=== PATIENT | female | born 1965 | race Caucasian/White ===

== ENCOUNTER 2023-06-08 12:31 | Emergency (ER) | payer BC, SELFPAY ==
--- NOTE | ~2023-06-08 | CT_ITS ---
EXAMINATION: CT cervical spine wo con DATE: 06/08/2023 13:56 INDICATION: Head injury. TECHNIQUE: Computed tomography (CT) of the cervical spine was performed without intravenous contrast. Automated exposure control and iterative reconstruction technique were employed. The dose-length pro duct was 553.21 mGy-cm. COMPARISON: None FINDINGS: There is an 8 degrees levocurvature of the cervicothoracic spine. Vertebral body heights ar e normal. There is mildly decreased disc height at C4-C5 and moderately decreased disc height at C5-C 6 and C6-C7. The following disc levels are specifically discussed: C2-C3: There is no uncovertebral joint osteoarthritis. There is severe right and mild left facet join t osteoarthritis. There is no neural foraminal stenosis. There is no central canal stenosis. C3-C4: There is mild bilateral uncovertebral joint osteoarthritis. There is mild bilateral facet join t osteoarthritis. There is no neural foraminal stenosis. There is no central canal stenosis. C4-C5: There is no uncovertebral joint osteoarthritis. There is no facet joint osteoarthritis. There is no neural foraminal stenosis. There is no central canal stenosis. C5-C6: There is severe right and moderate left uncovertebral joint osteoarthritis. There is mild bila teral facet joint osteoarthritis. There is mild bilateral neural foraminal stenosis. There is mild ce ntral canal stenosis. C6-C7: There is mild bilateral uncovertebral joint osteoarthritis. There is severe bilateral facet kelsy int osteoarthritis. There is mild bilateral neural foraminal stenosis. There is mild central canal st enosis. C7-T1: There is no uncovertebral joint osteoarthritis. There is severe right and mild left facet join t osteoarthritis. There is mild right neural foraminal stenosis. There is no central canal stenosis. IMPRESSION: 1. No fracture. 2. Moderate cervical spondylosis. Reviewed, dictated and finalized at location A.
--- NOTE | ~2023-06-08 | CT_ITS ---
EXAMINATION: CT brain wo con DATE: 06/08/2023 13:56 INDICATION: Head injury. TECHNIQUE: Computed tomography (CT) of the head was performed without intravenous contrast. The mA wa s adjusted according to patient size. Iterative reconstruction technique was employed. The dose-lengt h product was 681.00 mGy-cm. COMPARISON: None FINDINGS: There is no intracranial hemorrhage, acute infarction, or abnormal intracranial mass lesion . The ventricles are normal in size. The orbits are normal. There is mild mucosal thickening in the e thmoid sinuses. The mastoid air cells are normal. There is left posterior scalp soft tissue swelling. IMPRESSION: 1. Normal brain. Reviewed, dictated and finalized at location A. IMPRESSION: 1. Normal brain.
[2023-06-08 12:52] VITALS: BP 157/66; PULSE 85; RESP 18; TEMP 36.3; O2SAT 100
--- NOTE | 2023-06-08 13:34 | ED.HEATRA ---
HPI - Head Injury General Chief complaint: Head Injury <Val Tan PA-C - Last Filed: 06/08/23 13:44> Stated complaint: head injury <Val Tan PA-C - Last Filed: 06/08/23 13:44> Time Seen by Provider: 06/08/23 13:34 <Val Tan PA-C - Last Filed: 06/08/23 13:44> Focused HPI: Patient is a 57-year-old female who presents the ED with report of a fall/head injury. Patient reports she tripped and fell and the bathroom this morning and hit her head on the door frame. Sustained a contusion to her posterior scalp. No bleeding. Denied LOC. denied prodromal symptoms prior to the fall, however states over the last 1 hour, has become somewhat somnolent, states she feels very heavy, feels as though there are bugs in her head. Denies dizziness, lightheadedness, vision changes, nausea. Family member at bedside states patient is not acting herself. Patient is not on any blood thinners. Denies any other pain. Denies neck or back pain. GENERAL: Mildly somnolent-appearing, well-nourished, and in no acute distress. HEAD: Normocephalic. Contusion/hematoma to L posterior scalp, Scattered petechia and bruising forming. No wounds or lacerations. EYES: EOM intact but not fluid, no significant gaze deviation but L eye movement seemed to stop when trying to cross midline. NECK: No midline spinal tenderness. CHEST: Clear to auscultation. ?No respiratory distress. HEART: Regular rate and rhythm.? NEURO: ?Alert and oriented x3. No appreciable focal deficits on exam. Gait somewhat slow. PSYCHIATRIC: Tearful Patient screened in triage and initial orders placed.? ?Additional care and disposition to be based upon?diagnostic testing and treatment. <Val Tan PA-C - Last Filed: 06/08/23 13:44> Source: patient <Val Tan PA-C - Last Filed: 06/08/23 13:44> family (sister) <Xiao Tobias MD - Last Filed: 06/10/23 07:27> Mode of arrival: ambulatory <JUAN JOSE Cordero Last Filed: 06/08/23 13:44> Limitations: no limitations <JUAN JOSE Cordero Last Filed: 06/08/23 13:44> History of Present Illness HPI Narrative: Concur with MSE in triage. Patient has not yet taken anything for pain at home. Hit head on door frame. No photophobia or phonophobia. <MD Gomez Turner Last Filed: 06/10/23 07:27> Related Data Allergies/Adverse reactions: Allergies Allergy/AdvReac Type Severity Reaction Status Date / Time iohexol Allergy Hives Verified 06/08/23 15:26 [From contrast - CT, X-RAY] <JUAN JOSE Cordero Last Filed: 06/08/23 13:44> Exam Const: General: healthy appearing and no acute distress; No diaphoretic <Xiao Tobias MD - Last Filed: 06/10/23 07:27> Nutritional Appearance: well nourished <MD Gomez Turner Last Filed: 06/10/23 07:27> HENMT: Ears: external ears normal <Xiao Tobias MD - Last Filed: 06/10/23 07:27> Face/Nose/Sinus: Normal external nose present <MD Gomez Turner Last Filed: 06/10/23 07:27> Face and sinus: normal facial exam <Xiao Tobias MD - Last Filed: 06/10/23 07:27> Other: posterior scalp hematoma, not bleeding/no laceration <MD Gomez Turner Last Filed: 06/10/23 07:27> Eyes: Conjunctivae: conjunctivae normal <MD Gomez Turner Last Filed: 06/10/23 07:27> Direct Ophthalmoscopy: no photophobia <MD Gomez Turner Last Filed: 06/10/23 07:27> Neck: Neck: no meningeal signs <Xiao Tobias MD - Last Filed: 06/10/23 07:27> Chest: Chest palpation & inspection: normal inspection of the chest <Xiao Tobias MD - Last Filed: 06/10/23 07:27> Resp: Effort & Inspection: normal respiratory effort, not labored, no retractions, not tachypneic and no use of accessory muscles <Xiao Tobias MD - Last Filed: 06/10/23 07:27> Cardio: Rate: regular rate <Xiao Tobias MD - Last Filed: 06/10/23 0
[2023-06-08 15:18] VITALS: BP 136/75; PULSE 75; RESP 19; TEMP 36.4; O2SAT 99
[2023-06-08 15:24] VITALS: O2SAT 100
[2023-06-08 15:45] VITALS: BP 126/76; PULSE 80; RESP 17; O2SAT 97
[2023-06-08] MEDS: KETOROLAC 30 MG/ML VIAL (*BKC) 15 MG IM (17:18)
[2023-06-08] MEDS: ACETAMINOPHEN 500 MG TABLET 1000 MG PO (17:18)
[2023-06-08 17:21] VITALS: BP 128/78; PULSE 79; RESP 17; O2SAT 98
[2023-06-08] MEDS: predniSONE 20 MG TABLET PO (18:18)
[2023-06-08] MEDS: MAGNESIUM OXIDE 400 MG TABLET PO (18:18)
[2023-06-08] MEDS: diphenhydrAMINE HCl CAP 25 MG CAPSULE PO (18:18)
[2023-06-08] MEDS: PROCHLORPERAZINE MALEATE 5 MG TABLET PO (18:38)
[2023-06-08 18:48] VITALS: BP 132/68; PULSE 88; RESP 18; O2SAT 99
== END 2023-06-08 18:49 | disposition home or self-care (01) ==
PROVIDERS: Emergency Provider Student in an Organized Health Care Education/Training Program
DX: G44.309 Post-traumatic headache, unspecified, not intractable (principal); F07.81 Postconcussional syndrome; M47.812 Spondylosis without myelopathy or radiculopathy, cervical region; W01.198A Fall on same level from slipping, tripping and stumbling with subsequent striking against other object, initial encounter
CPT/HCPCS: 70450; 72125; 96372; 99284; A9270; J1885; J7512